=== PATIENT | female | born 2000 | race Caucasian/White ===

== ENCOUNTER 2022-09-15 01:30 | Inpatient (IN) ==
[2022-09-15] MEDS ORDERED: ONDANSETRON INJ 2 MG/ML 2 ML VIAL IV STA ×3 (01:44→04:59)
[2022-09-15] MEDS: SODIUM CHLORIDE 0.9% 1000ML 1,000 ML IV SCH ×2 (01:54→02:46)
[2022-09-15] MEDS ORDERED: FAMOTIDINE 20MG IV PUSH 20 MG/5 ML SYR IV STA (02:06)
[2022-09-15] MEDS ORDERED: DICYCLOMINE HCL 10 MG/ML 2 ML AMP/VIAL IM ONE (02:06)
[2022-09-15 02:24] LABS: Basophils # (auto) 0.05 K/uL (0-0.2); Basophils % (auto) 0.3 %; Eosinophils # (auto) 0.02 K/uL (0-0.50); Eosinophils % (auto) 0.1 %; Hematocrit (blood only) 44.7 % (37.0-47.0); Hemoglobin 15.4 g/dl (12.0-16.0); Immature Granulocytes # (auto) 0.08 K/uL (0.01-0.20); Immature Granulocytes % (auto) 0.4 %; Lymphocytes # (auto) 1.67 K/uL (1.2-3.4); Lymphocytes % (auto) 9.2 %; Mean Corpuscular Hemoglobin 28.8 pg (25.0-34.0); Mean Corpuscular Hgb Conc 34.5 g/dL (32.0-36.0); Mean Corpuscular Volume 83.7 fL (80.0-100.0); Mean Platelet Volume 10.1 fL (9.4-12.4); Monocytes # (auto) 0.73 K/uL (0.11-0.59); Neutrophils # (auto) 15.67 K/uL (1.40-6.50); Platelet Count 517 K/uL (130-400); RDW Coefficient of Variation 13.2 % (11.5-14.5); RDW Standard Deviation 40.7 fL (36.4-46.3); Red Blood Count 5.34 M/uL (4.20-5.40); White Blood Count 18.22 K/ul (4.8-10.8)
[2022-09-15 02:30] LABS: Albumin Level 4.8 gm/dl (3.4-5.0); BUN Creatinine Ratio 15.3 (10-20); Bilirubin Direct 0.2 mg/dl (0-0.2); Bilirubin,Total 0.7 mg/dl (0.2-1.0); C Reactive Protein 1.19 mg/dl (0-0.5); Calcium 10.2 mg/dl (8.5-10.1); Creatinine Clr Calc Pharmacy 76.1 ml/min; Est GFR (African American) 95.6 ml/min; Est GFR (Non-African American) 82.5 ml/min; Magnesium 1.7 mg/dl (1.7-2.4); Potassium 3.3 mmol/L (3.5-5.1); Total Protein 8.7 gm/dl (6.0-8.3)
[2022-09-15 02:37] LABS: Troponin I High Sensitivity 3.5 pg/ml (0-14)
--- NOTE | 2022-09-15 02:42 | Emergency Department Note ---
History of Present Illness General Chief complaint: Vomiting Stated complaint: VOMITING Time Seen by Provider: 09/15/22 01:56 History of Present Illness Maximum Pain Intensity: 7 This 22-year-old with Crohn's disease presents to the ER complaining of nausea, vomiting and abdominal pain today. No prior abdominal surgeries. No history of fistulous or abscesses. She states she has been doing well with her Crohn's since she has been on medication. Patient denies chest pain, dyspnea, fevers, flulike illness. Home Medications Medication Instructions Recorded Confirmed Type ascorbic acid (vitamin C) 500 mg 0 mg PO DAILY 09/15/22 09/15/22 History tablet (Vitamin C) cholecalciferol (vitamin D3) 25 0 mcg PO DAILY 09/15/22 09/15/22 History mcg (1,000 unit) capsule (Vitamin D3) cyanocobalamin (vitamin B-12) 0 mcg PO DAILY 09/15/22 09/15/22 History 1,000 mcg tablet (Vitamin B-12) dicyclomine 10 mg capsule 10 mg PO Q12H PRN ABD PAIN 09/15/22 09/15/22 History escitalopram oxalate 10 mg tablet 10 mg PO DAILY 09/15/22 09/15/22 History (Lexapro) multivitamin 1 tab PO DAILY 09/15/22 09/15/22 History norethindrone 1 mg-ethinyl 1 tab PO DAILY 09/15/22 09/15/22 History estradiol 10 mcg (24)-iron 10 mcg(2) tablet (Lo Loestrin Fe) Allergies Allergy/AdvReac Type Severity Reaction Status Date / Time ferrous sulfate Allergy Severe Anaphylaxis Verified 09/15/22 02:15 iron Allergy Severe Anaphylaxis Verified 09/15/22 02:15 Past Med/Surg History Social History Smoking Status: Never smoker Feels Safe at Home: Yes Review of Systems A total of 10 systems reviewed and were otherwise negative Physical Exam Vital Signs Vital Signs - 24 hr 09/15/22 01:33 09/15/22 01:45 09/15/22 01:45 Temperature 35.0 C L Temperature Source Temporal Artery Scan Pulse Rate 154 H Pulse Rate [Apical] 109 H Pulse Rhythm [Apical] Regular Pulse Strength [Apical] Normal Respiratory Rate 26 H 20 Respiratory Effort / Characteristics Non-Labored Spontaneous Non-Labored Respiratory Depth Normal Normal Respiratory Pattern Regular Blood Pressure 101/70 Blood Pressure [Right Arm] 99/72 L Blood Pressure Mean 80 Blood Pressure Mean [Right Arm] 81 Blood Pressure Position Sitting Blood Pressure Position [Right Arm] Lying Pulse Oximetry 99 98 98 Oxygen Delivery Method Room Air Room Air Room Air Sepsis Recent Fever Within 48 Hours No Sepsis New/Unexplained Change in Mental Status N/A Sepsis Action Taken by Nursing No Action Required 09/15/22 02:00 09/15/22 03:43 09/15/22 04:28 Temperature 37.2 C Temperature Source Axillary Oral Pulse Rate Pulse Rate [Apical] 99 H 107 H 112 H Pulse Rhythm [Apical] Regular Regular Pulse Strength [Apical] Normal Normal Respiratory Rate 16 18 Respiratory Effort / Characteristics Non-Labored Spontaneous Non-Labored Spontaneous Non-Labored Spontaneous Respiratory Depth Normal Normal Normal Respiratory Pattern Regular Blood Pressure Blood Pressure [Right Arm] 99/69 L 125/76 121/88 Blood Pressure Mean Blood Pressure Mean [Right Arm] 79 92 99 Blood Pressure Position Blood Pressure Position [Right Arm] Lying Lying Pulse Oximetry 97 100 99 Oxygen Delivery Method Room Air Room Air Room Air Sepsis Recent Fever Within 48 Hours Sepsis New/Unexplained Change in Mental Status Sepsis Action Taken by Nursing 09/15/22 05:11 Temperature Temperature Source Pulse Rate Pulse Rate [Apical] 96 H Pulse Rhythm [Apical] Pulse Strength [Apical] Respiratory Rate 18 Respiratory Effort / Characteristics Non-Labored Spontaneous Respiratory Depth Normal Respiratory Pattern Blood Pressure Blood Pressure [Right Arm] 137/64 Blood Pressure Mean Blood Pressure Mean [Right Arm] 88 Blood Pressure Position Blood Pressure Position [Right Arm] Pulse Oximetry 100 Oxygen Delivery Method Room Air Sepsis Recent Fever Within 48 Hours Sepsis New/Unexplained Change in Mental Status Sepsis Action Taken by Nursing VITALS: Vitals are noted on the nurse's note and reviewed by myself. Vital signs reviewed. GENERAL: Pleasant female with vomiting holding her vomit trash can, in no acute distress, nondiaphoretic, well-developed well-nourished. SKIN: The skin was without rashes, erythema, edema, or bruising. There is no tenting of the skin. Capillary reflex less than 2 seconds. HEAD: Normocephalic atraumatic. EARS: External auditory canals clear, EYES: Pupils equal round and reactive to light and accommodation. Conjunctivae without injection, sclerae without icterus. Extraocular movements intact. NOSE: Patent, turbinates without inflammation or discharge. MOUTH: Mucous membranes dry pharynx without erythema or exudate. Uvula midline. Airway patent. Tongue does not deviate. NECK: Supple without nuchal rigidity. No lymphadenopathy. No thyromegaly. Cervical spine is nontender. No JVD. HEART: Regular rate and rhythm LUNGS: Clear to auscultation bilaterally without wheezes, rales or rhonchi. No retractions or accessory muscle use. ABDOMEN: Positive bowel sounds x 4. Normal tympanic percussion. Soft, diffusely tender, without masses or organomegaly. Ybarra sign negative. No guarding or rebound tenderness. No CVA tenderness MUSCULOSKELETAL: No muscle atrophy, erythema, or edema noted. NEURO: Patient was alert and oriented to person place and time. Normal sensation to light and sharp touch. No focal neurological deficits. Course Administered Medications Discontinued Medications Dicyclomine HCl (Dicyclomine Hcl 10 Mg/Ml 2 Ml Amp/Vial) 20 mg IM NOW ONE Stop: 09/15/22 02:07 Last Admin: 09/15/22 02:46 Dose: 20 mg Documented By: SINDY Sodium Chloride (Nss 1000ml) 1,000 mls @ 999 mls/hr IV .Q1H1M MARCELINO Stop: 09/15/22 03:45 Last Infusion: 09/15/22 03:49 Dose: 0 mls/hr Documented By: Admin: 09/15/22 02:46 Dose: 999 mls/hr Documented By: Infusion: 09/15/22 02:46 Dose: 999 mls/hr Documented By: Admin: 09/15/22 01:54 Dose: 999 mls/hr Documented By: SINDY Famotidine (Pepcid 20mg Iv Push) 20 mg in 5 mls @ 2.5 mls/min IV NOW STA Stop: 09/15/22 02:07 Last Admin: 09/15/22 02:24 Dose: 2.5 mls/min Documented By: SINDY Sodium Chloride (Nss 1000ml) 1,000 mls @ 999 mls/hr IV .Q1H1M ONE Stop: 09/15/22 04:21 Last Infusion: 09/15/22 04:56 Dose: 0 mls/hr Documented By: Admin: 09/15/22 03:43 Dose: 999 mls/hr Documented By: DEVIN Acetaminophen (Ofirmev) 1,000 mg in 100 mls @ 400 mls/hr IV NOW STA Stop: 09/15/22 05:13 Last Infusion: 09/15/22 05:50 Dose: 0 mls/hr Documented By: Admin: 09/15/22 05:08 Dose: 400 mls/hr Documented By: DEVIN Ioversol (Optiray 350 100ml) 100 ml IV ONCE ONE Stop: 09/15/22 03:40 Last Admin: 09/15/22 03:39 Dose: 86 ml Documented By: ABIDA Ondansetron HCl (Ondansetron Inj 2 Mg/Ml 2 Ml Vial) 4 mg IV NOW STA Stop: 09/15/22 01:45 Last Admin: 09/15/22 01:54 Dose: 4 mg Documented By: SINDY Ondansetron HCl (Ondansetron Inj 2 Mg/Ml 2 Ml Vial) 4 mg IV NOW STA Stop: 09/15/22 02:07 Last Admin: 09/15/22 02:25 Dose: 4 mg Documented By: SINDY Ondansetron HCl (Ondansetron Inj 2 Mg/Ml 2 Ml Vial) 4 mg IV NOW STA Stop: 09/15/22 05:00 Last Admin: 09/15/22 05:08 Dose: 4 mg Documented By: DEVIN Medical Decision Making Medical Records Attestation: I reviewed the patient's medical records. Home Medications Current Medication List: was personally reviewed by al Laboratory Data Attestation: I reviewed the patient's lab results. 09/15/22 01:47 09/15/22 01:47 Lab Results 09/15/22 09/15/22 09/15/22 Range/Units 01:47 01:47 01:47 WBC 18.22 H (4.8-10.8) K/ul RBC 5.34 (4.20-5.40) M/uL Hgb 15.4 (12.0-16.0) g/dl Hct 44.7 (37.0-47.0) % MCV 83.7 (80.0-100.0) fL MCH 28.8 (25.0-34.0) pg MCHC 34.5 (32.0-36.0) g/dL RDW Std Deviation 40.7 (36.4-46.3) fL RDW Coeff of Lan 13.2 (11.5-14.5) % Plt Count 517 H (130-400) K/uL MPV 10.1 (9.4-12.4) fL Immature Gran % (Auto) 0.4 % Neut % (Auto) 86.0 % Lymph % (Auto) 9.2 % Karnes % (Auto) 4.0 % Eos % (Auto) 0.1 % Baso % (Auto) 0.3 % Neut # (Auto) 15.67 H (1.40-6.50) K/uL Lymph # (Auto) 1.67 (1.2-3.4) K/uL Karnes # (Auto) 0.73 H (0.11-0.59) K/uL Eos # (Auto) 0.02 (0-0.50) K/uL Baso # (Auto) 0.05 (0-0.2) K/uL Immature Gran # (Auto) 0.08 (0.01-0.20) K/uL ESR (0-20) mm/hr Sodium 140 (136-145) mmol/L Potassium 3.3 L (3.5-5.1) mmol/L Chloride 104 (98-107) mmol/L Carbon Dioxide 18 L (21-32) mmol/L Anion Gap 18 H (3-11) BUN 15 (6-23) mg/dl Creatinine 0.98 (0.6-1.2) mg/dl Est Cr Clr Drug Dosing 76.1 ml/min Est GFR ( Amer) 95.6 ml/min Est GFR (Non-Af Amer) 82.5 ml/min BUN/Creatinine Ratio 15.3 (10-20) Glucose 191 H (70-99(Fasting)) mg/dl Lactate 3.9 H* (0.4-2.0) mmol/L Calcium 10.2 H (8.5-10.1) mg/dl Magnesium 1.7 (1.7-2.4) mg/dl Total Bilirubin 0.7 (0.2-1.0) mg/dl Direct Bilirubin 0.2 (0-0.2) mg/dl AST 34 (13-39) U/L ALT 68 H (7-52) U/L Alkaline Phosphatase 83 (34-104) U/L Troponin I High Sens 3.5 (0-14) pg/ml C-Reactive Protein 1.19 H (0-0.5) mg/dl Total Protein 8.7 H (6.0-8.3) gm/dl Albumin 4.8 (3.4-5.0) gm/dl Procalcitonin (0-0.5) ng/ml HCG, Qual (Negative) 09/15/22 09/15/22 09/15/22 Range/Units 01:47 01:47 01:47 WBC (4.8-10.8) K/ul RBC (4.20-5.40) M/uL Hgb (12.0-16.0) g/dl Hct (37.0-47.0) % MCV (80.0-100.0) fL MCH (25.0-34.0) pg MCHC (32.0-36.0) g/dL RDW Std Deviation (36.4-46.3) fL RDW Coeff of Lan (11.5-14.5) % Plt Count (130-400) K/uL MPV (9.4-12.4) fL Immature Gran % (Auto) % Neut % (Auto) % Lymph % (Auto) % Karnes % (Auto) % Eos % (Auto) % Baso % (Auto) % Neut # (Auto) (1.40-6.50) K/uL Lymph # (Auto) (1.2-3.4) K/uL Karnes # (Auto) (0.11-0.59) K/uL Eos # (Auto) (0-0.50) K/uL Baso # (Auto) (0-0.2) K/uL Immature Gran # (Auto) (0.01-0.20) K/uL ESR 27 H (0-20) mm/hr Sodium (136-145) mmol/L Potassium (3.5-5.1) mmol/L Chloride (98-107) mmol/L Carbon Dioxide (21-32) mmol/L Anion Gap (3-11) BUN (6-23) mg/dl Creatinine (0.6-1.2) mg/dl Est Cr Clr Drug Dosing ml/min Est GFR ( Amer) ml/min Est GFR (Non-Af Amer) ml/min BUN/Creatinine Ratio (10-20) Glucose (70-99(Fasting)) mg/dl Lactate (0.4-2.0) mmol/L Calcium (8.5-10.1) mg/dl Magnesium (1.7-2.4) mg/dl Total Bilirubin (0.2-1.0) mg/dl Direct Bilirubin (0-0.2) mg/dl AST (13-39) U/L ALT (7-52) U/L Alkaline Phosphatase (34-104) U/L Troponin I High Sens (0-14) pg/ml C-Reactive Protein (0-0.5) mg/dl Total Protein (6.0-8.3) gm/dl Albumin (3.4-5.0) gm/dl Procalcitonin < 0.05 (0-0.5) ng/ml HCG, Qual Negative (Negative) 09/15/22 Range/Units 04:52 WBC (4.8-10.8) K/ul RBC (4.20-5.40) M/uL Hgb (12.0-16.0) g/dl Hct (37.0-47.0) % MCV (80.0-100.0) fL MCH (25.0-34.0) pg MCHC (32.0-36.0) g/dL RDW Std Deviation (36.4-46.3) fL RDW Coeff of Lan (11.5-14.5) % Plt Count (130-400) K/uL MPV (9.4-12.4) fL Immature Gran % (Auto) % Neut % (Auto) % Lymph % (Auto) % Karnes % (Auto) % Eos % (Auto) % Baso % (Auto) % Neut # (Auto) (1.40-6.50) K/uL Lymph # (Auto) (1.2-3.4) K/uL Karnes # (Auto) (0.11-0.59) K/uL Eos # (Auto) (0-0.50) K/uL Baso # (Auto) (0-0.2) K/uL Immature Gran # (Auto) (0.01-0.20) K/uL ESR (0-20) mm/hr Sodium (136-145) mmol/L Potassium (3.5-5.1) mmol/L Chloride (98-107) mmol/L Carbon Dioxide (21-32) mmol/L Anion Gap (3-11) BUN (6-23) mg/dl Creatinine (0.6-1.2) mg/dl Est Cr Clr Drug Dosing ml/min Est GFR ( Amer) ml/min Est GFR (Non-Af Amer) ml/min BUN/Creatinine Ratio (10-20) Glucose (70-99(Fasting)) mg/dl Lactate 2.5 H* (0.4-2.0) mmol/L Calcium (8.5-10.1) mg/dl Magnesium (1.7-2.4) mg/dl Total Bilirubin (0.2-1.0) mg/dl Direct Bilirubin (0-0.2) mg/dl AST (13-39) U/L ALT (7-52) U/L Alkaline Phosphatase (34-104) U/L Troponin I High Sens (0-14) pg/ml C-Reactive Protein (0-0.5) mg/dl Total Protein (6.0-8.3) gm/dl Albumin (3.4-5.0) gm/dl Procalcitonin (0-0.5) ng/ml HCG, Qual (Negative) Imaging Data Attestation: I personally reviewed and interpreted this imaging study as follows: MDM Narrative Prior records/ancillary studies reviewed. Triage Nursing notes reviewed. Additional history obtained from friend The patient's history was concerning for nausea, vomiting, and abdominal pain. Differential diagnosis: Etiologies such as Crohn's exacerbation, gastroenteritis, food borne illness, infections, appendicitis, diverticulitis, inflammatory bowel disease, o bstruction, GI bleed, biliary pathology, as well as others were entertained. Physical examination findings: As above. Abdominal examination revealed diffuse tenderness. Vital signs reviewed and revealed mildly tachycardic. ER treatment provided: IV hydration 1 L NSS. Zofran Pepcid Bentyl were ordered, APAP was ordered On reassessment the patient felt better. Patient was tolerating p.o. intake. Diagnostics interpretation by me: The labs Independently Interpreted by myself revealed leukocytosis, elevated inflammatory markers Imaging studies: Chest x-ray with no acute consolidation, pneumothorax or free air per my interpretation CT ABDOMEN & PELVIS With Contrast: High-grade small bowel obstruction extending to the level of an abrupt transition at the terminal ileum compatible with probable inflammatory stricture. The terminal ileum demonstrates enhancement and irregular wall thickening and the dilated distal loops of small bowel demonstrate mild wall thickening suggestive of active inflammation in a patient with a history of Crohn's disease No evidence for fistulization Solid organs normal The colon is predominantly collapsed Radiologist: David Marroquin MD Consultation: A consultation was placed with the hospitalist. The case was discussed and diagnostics were reviewed. The patient was evaluated in the ER for further treatment. The patient's mother called and the patient gave permission to speak to her mother. Mother asked about her test results. Labs and diagnostics were reviewed with the mother. All questions were answered. This appears to be consistent with Crohn's disease with a bowel obstruction. Labs and diagnostics were independently kept by myself. Radiology read the CAT scan. Case is discussed with the hospitalist and they will evaluate the patient for admission. Patient is agreeable. Mother is agreeable treatment plan. Patient will be admitted to the hospital service. By the evaluation outlined above emergent etiologies such as appendicitis, diverticulitis, cardiac sources, mesenteric ischemia, aortic pathology, renal colic, PUD, biliary pathology, UTI, as well as others were deemed relatively unlikely. The pt informed about the findings as listed above. All questions were answered and pleased with the treatment. The chart was completed utilizing [employer] Speech voice recognition software. Grammatical errors, random word insertions, pronoun errors, and incomplete sentences are an occassional consequence of this system due to software limitations, ambient noise, and hardware issues. Any formal questions or concerns about the content, text, or information contained within the body of this dictation should be directly addressed to the physician casino assistant manager for clarification. Impression & Plan SBO (small bowel obstruction), Crohn disease Discharge Plan Visit Data Chief Complaint: Vomiting Stated Complaint: VOMITING ED Provider: Mariah Campbell ED Midlevel Provider: Myesha Shay Discharge Problem: SBO (small bowel obstruction), Crohn disease Patient Disposition: Admitted As Inpatient Condition: Good Forms Stand Alone Forms: My [facility] Prescriptions Prescriptions: No Action multivitamin Tablet 1 tab PO DAILY cyanocobalamin (vitamin B-12) [Vitamin B-12] 1,000 mcg Tablet 0 mcg PO DAILY Rx Instructions: PT UNSURE OF STRENGTH ascorbic acid (vitamin C) [Vitamin C] 500 mg Tablet 0 mg PO DAILY Rx Instructions: PT UNSURE OF STRENGTH dicyclomine 10 mg Capsule 10 mg PO Q12H PRN (Reason: ABD PAIN) cholecalciferol (vitamin D3) [Vitamin D3] 25 mcg (1,000 unit) Capsule 0 mcg PO DAILY Rx Instructions: PT UNSURE OF STRENGTH escitalopram oxalate [Lexapro] 10 mg Tablet 10 mg PO DAILY Lo Loestrin Fe 1 mg-10 mcg (24)/10 mcg (2) Tablet 1 tab PO DAILY Referrals Referrals: PCP,NO [Physician] -
[2022-09-15 02:45] LABS: Pregnancy Test, Serum Negative (Negative)
[2022-09-15] MEDS ORDERED: SODIUM CHLORIDE 0.9% 1000ML 1,000 ML IV ONE (03:21)
[2022-09-15] MEDS ORDERED: OPTIRAY 350 100ml IV ONE (03:39)
[2022-09-15] MEDS ORDERED: ACETAMINOPHEN 1,000 MG/100 ML VIAL IV STA (04:59)
--- NOTE | 2022-09-15 06:21 | History & Physical Report ---
Date of Service September 15, 2022 Assessment & Plan (1) SBO (small bowel obstruction): Plan: 22yo female with history of Crohns disease - overall well managed on Stelara - presenting with high grade SBO secondary to Crohs - possible stricture as noted on imaging -Admit to medical -Keep NPO -NGT to LIWS -Zofran PRN -Morphine PRN -Solumedrol 40mg IV daily -GI consultation appreciated -General surgery consultation appreciated (2) Crohn disease: Plan: With SBO as above -Solumedrol -GI consultation (3) Anxiety: Plan: Chronic -Continue Lexapro History of Present Illness Chief Complaint: SBO Primary Care Provider: YOGI E GOTBessy Tadeo is a 22yo female with history of Crohns disease presenting with SBO. She is complaining of one day of severe abdominal pain - diffuse cramping as well as nausea and multiple episodes of bilious vomiting. She is passing some flatus - last this am. Had a small BM this AM as well. Patient was diagnosed with Crohns disease appx 1 year ago. She follows with [facility]. She was previously on Budesonide and now is on Stelara injections. She is to get the injections q 8 weeks - sometimes will get it at 7 weeks due to recurrence of symptoms. Her disease is overall well controlled. She has not had a flare since her diagnosis. Last Stelara injection was 5 days ago. In the ER she is afebrile, HD stable. Nausea and pain is improved ER Course: Tylenol, Dicyclomine Allergies Allergy/AdvReac Type Severity Reaction Status Date / Time ferrous sulfate Allergy Severe Anaphylaxis Verified 09/15/22 02:15 iron Allergy Severe Anaphylaxis Verified 09/15/22 02:15 Home Medications Medication Instructions Recorded Confirmed Type ascorbic acid (vitamin C) 500 mg 0 mg PO DAILY 09/15/22 09/15/22 History tablet (Vitamin C) cholecalciferol (vitamin D3) 25 0 mcg PO DAILY 09/15/22 09/15/22 History mcg (1,000 unit) capsule (Vitamin D3) cyanocobalamin (vitamin B-12) 0 mcg PO DAILY 09/15/22 09/15/22 History 1,000 mcg tablet (Vitamin B-12) dicyclomine 10 mg capsule 10 mg PO Q12H PRN ABD PAIN 09/15/22 09/15/22 History escitalopram oxalate 10 mg tablet 10 mg PO DAILY 09/15/22 09/15/22 History (Lexapro) multivitamin 1 tab PO DAILY 09/15/22 09/15/22 History norethindrone 1 mg-ethinyl 1 tab PO DAILY 09/15/22 09/15/22 History estradiol 10 mcg (24)-iron 10 mcg(2) tablet (Lo Loestrin Fe) Past Med/Surg History Medical History Crohn disease Surgical History History of wisdom tooth extraction Family History Other IBS (irritable bowel syndrome) Social History (Updated 09/15/22 @ 07:12 by Jeri Arevalo DO) Smoking Status: Never smoker Hx Alcohol Use: Yes (social) Hx Substance Use: No Feels Safe at Home: Yes Review of Systems Review of Systems: All systems reviewed & are unremarkable except as noted in HPI & below Physical Exam Physical Exam: General: patient resting comfortably, NAD, non-toxic in appearance, AA&O x 4 Skin: warm, dry, intact, no rashes or lesions HEENT: NC/AT, PERRL, EOMI, anicteric sclera, conjunctiva without injection, external ear normal to inspection and nontender, nares patent, moist mucus membranes, dentition intact, no oropharyngeal lesions, neck supple, trachea midline, no LAD, no thyromegaly, no JVD Heart: +S1/S2, regular, no m/r/g Lungs: equal air entry bilaterally, no rales/rhonchi/wheezes Abd: diminished bowel sounds, soft, ND, diffusely tender, no masses/organomegaly/ascites Ext: warm, 2+ pulses in UE/LE bilaterally, no clubbing/cyanosis or edema Neuro: nonfocal, patient AA&O x 4, speech intact, no facial droop, moving all extremities on command with equal strength 5/5 Results & Data Results & Data ([facility]) Vital Signs (Past 12 Hours) Vital Signs Temp Pulse Pulse Resp BP BP Pulse Ox 09/15/22 05:11 96 H 18 137/64 100 09/15/22 04:28 37.2 C 112 H 18 121/88 99 09/15/22 03:43 107 H 16 125/76 100 09/15/22 02:00 99 H 99/69 L 97 09/15/22 01:45 109 H 20 99/72 L 98 09/15/22 01:45 98 09/15/22 01:33 35.0 C L 154 H 26 H 101/70 99 O2 Del Method 09/15/22 05:11 Room Air 09/15/22 04:28 Room Air 09/15/22 03:43 Room Air 09/15/22 02:00 Room Air 09/15/22 01:45 Room Air 09/15/22 01:45 Room Air 09/15/22 01:33 Room Air Laboratory Results Laboratory Results WBC 18.22 K/ul (4.8-10.8) H 09/15/22 01:47 RBC 5.34 M/uL (4.20-5.40) 09/15/22 01:47 Hgb 15.4 g/dl (12.0-16.0) 09/15/22 01:47 Hct 44.7 % (37.0-47.0) 09/15/22 01:47 MCV 83.7 fL (80.0-100.0) 09/15/22 01:47 MCH 28.8 pg (25.0-34.0) 09/15/22 01:47 MCHC 34.5 g/dL (32.0-36.0) 09/15/22 01:47 RDW Std Deviation 40.7 fL (36.4-46.3) 09/15/22 01:47 RDW Coeff of Lan 13.2 % (11.5-14.5) 09/15/22 01:47 Plt Count 517 K/uL (130-400) H 09/15/22 01:47 MPV 10.1 fL (9.4-12.4) 09/15/22 01:47 Immature Gran % (Auto) 0.4 % 09/15/22 01:47 Neut % (Auto) 86.0 % 09/15/22 01:47 Lymph % (Auto) 9.2 % 09/15/22 01:47 Clay % (Auto) 4.0 % 09/15/22 01:47 Eos % (Auto) 0.1 % 09/15/22 01:47 Baso % (Auto) 0.3 % 09/15/22 01:47 Neut # (Auto) 15.67 K/uL (1.40-6.50) H 09/15/22 01:47 Lymph # (Auto) 1.67 K/uL (1.2-3.4) 09/15/22 01:47 Clay # (Auto) 0.73 K/uL (0.11-0.59) H 09/15/22 01:47 Eos # (Auto) 0.02 K/uL (0-0.50) 09/15/22 01:47 Baso # (Auto) 0.05 K/uL (0-0.2) 09/15/22 01:47 Immature Gran # (Auto) 0.08 K/uL (0.01-0.20) 09/15/22 01:47 ESR 27 mm/hr (0-20) H 09/15/22 01:47 Sodium 140 mmol/L (136-145) 09/15/22 01:47 Potassium 3.3 mmol/L (3.5-5.1) L 09/15/22 01:47 Chloride 104 mmol/L (98-107) 09/15/22 01:47 Carbon Dioxide 18 mmol/L (21-32) L 09/15/22 01:47 Anion Gap 18 (3-11) H 09/15/22 01:47 BUN 15 mg/dl (6-23) 09/15/22 01:47 Creatinine 0.98 mg/dl (0.6-1.2) 09/15/22 01:47 Est Cr Clr Drug Dosing 76.1 ml/min 09/15/22 01:47 Est GFR ( Amer) 95.6 ml/min 09/15/22 01:47 Est GFR (Non-Af Amer) 82.5 ml/min 09/15/22 01:47 BUN/Creatinine Ratio 15.3 (10-20) 09/15/22 01:47 Glucose 191 mg/dl (70-99(Fasting)) H 09/15/22 01:47 Lactate 2.5 mmol/L (0.4-2.0) H* 09/15/22 04:52 Calcium 10.2 mg/dl (8.5-10.1) H 09/15/22 01:47 Magnesium 1.7 mg/dl (1.7-2.4) 09/15/22 01:47 Total Bilirubin 0.7 mg/dl (0.2-1.0) 09/15/22 01:47 Direct Bilirubin 0.2 mg/dl (0-0.2) 09/15/22 01:47 AST 34 U/L (13-39) 09/15/22 01:47 ALT 68 U/L (7-52) H 09/15/22 01:47 Alkaline Phosphatase 83 U/L (34-104) 09/15/22 01:47 Troponin I High Sens 3.5 pg/ml (0-14) 09/15/22 01:47 C-Reactive Protein 1.19 mg/dl (0-0.5) H 09/15/22 01:47 Total Protein 8.7 gm/dl (6.0-8.3) H 09/15/22 01:47 Albumin 4.8 gm/dl (3.4-5.0) 09/15/22 01:47 Procalcitonin < 0.05 ng/ml (0-0.5) 09/15/22 01:47 HCG, Qual Negative (Negative) 09/15/22 01:47 SARS-CoV-2, RNA, NAAT NEGATIVE (NEGATIVE) 09/15/22 06:[address] Abdomen and Pelvis High grade SBO extending to the level of an abrupt transition at the terminal ileum compatible with probable inflammatory stricture. The terminal ileum demonstrates enhancement and irregular wall thickening and the dilated distal loops of small bowel demonstrate mild wall thickening suggestive of active inflammation in a patient with a history of Crohn's disease. No evidence for fistulization Solid organs normal PG Care Time/CCT Total # of Minutes Spent Total Time Spent with Patient: Total time spent is greater than 50% in coordination of care (as documented) at patient's floor/unit and/or counseling patient: Coding Level of Care Code 39514 INT INP/OBS CARE 2/55MIN Diagnoses SBO (small bowel obstruction) K56.609 Crohn disease K50.90 Anxiety F41.9
--- NOTE | 2022-09-15 06:36 | Surgery Consultation ---
Date of Consultation September 15, 2022 Assessment & Plan (1) SBO (small bowel obstruction): I discussed with the treating clinician in the emergency department the patient is being admitted on the hospitalist service. We recommend proceeding as follows: Implement n.p.o. status Provide IV fluid for hydration Follow serial labs Provide analgesics Provide antiemetics At the present time the patient's abdominal symptoms have improved and she has not had emesis in approximately 2 hours. I did discuss with the patient that if she has further emesis or worsening of her abdominal exam and NG tube may be required and she expressed her understanding. It appears on CT scan the patient may have an active exacerbation of her Crohn's disease resulting in the small bowel obstruction present on CT scan. Would recommend obtaining a GI consultation to determine if patient should be placed on steroids and this will be deferred to the primary service as well as the GI services. I discussed with the patient that it would be preferable to avoid any surgical intervention due to her Crohn's disease. Additional recommendations be forthcoming based on her clinical course as it unfolds Supervising Physician Co-Signing Physician Notes Patient seen and examined, labs and imaging reviewed, agree with above. 22-year-old female with 1 year history of Crohn's disease on Stelara presents with abdominal pain. CT revealed inflammation at the TI with proximal small bowel obstruction. She is feeling better than on admission, still slightly bloated and with some abdominal discomfort. She has had multiple loose bowel movements. On exam she is afebrile with stable vitals. Her abdomen is soft, nontender, nondistended. GI has seen the patient starting her on Solu-Medrol. No surgical intervention indicated at this time. If patient continues to do well may start on clear liquids. Surgery will follow. History of Present Illness Reason for Consultation: Small bowel obstruction History of Present Illness This is a 22-year-old female who was diagnosed with Crohn's disease in December 2021. Patient notes she was diagnosed because she had symptoms similar to what she presented with today which include abdominal pain. The patient says that she underwent upper and lower endoscopies as well as abdominal MRI and was diagnosed with Crohn's. She said at time of her initial diagnosis she was on steroids and has subsequently been taking Stelara every 8 weeks which she received approximately 1 week ago. She presented the emergency department today because she began to have some nausea and vomiting along with abdominal pain earlier today. She does not note any palliative or provocative factors notes the pain does not radiate. She denies any fevers, shakes, or chills. She notes that she has never had abdominal surgeries. She notes her most recent emesis was approximately 2 hours ago and since arrival to the emergency department she has felt somewhat better. Since arrival to the emergency department the patient has had imaging which included a CT scan abdomen pelvis that showed concern for high-grade small bowel obstruction with an abrupt transition point at the level of the terminal ileum which was felt to be compatible with inflammatory stricture. This was also noted to have irregular wall thickening concerning for active inflammation. There is no evidence of fistula. Chest x-ray did not show any evidence of pneumonia or free subdiaphragmatic air. Labs include a CBC her white blood cell count was 18.2. Hemoglobin and hematocrit were noted to be normal. Platelet count was 517,000. Chemistry profile showed sodium was 140 with a potassium of 3.3. BUN and creatinine were both normal. Her erythrocyte sedimentation rate had a slight elevation at 27. Lactic acid was slightly elevated at 2.5. There is no significant elevation of LFTs other than a small elevation of the ALT at 68. C-reactive protein was elevated at 1.19. A test was negative. Procalcitonin was negative. A COVID test was pending. Since arrival to the emergency department patient has received intravenous fluids, approximately 2 L. She has received Zofran and Bentyl along with Pepcid and analgesics in the form of Tylenol. With these modalities the patient noted that she did feel somewhat better. At the time of my interview she was in no distress Allergies Allergy/AdvReac Type Severity Reaction Status Date / Time ferrous sulfate Allergy Severe Anaphylaxis Verified 09/15/22 02:15 iron Allergy Severe Anaphylaxis Verified 09/15/22 02:15 Home Medications Medication Instructions Recorded Confirmed Type ascorbic acid (vitamin C) 500 mg 0 mg PO DAILY 09/15/22 09/15/22 History tablet (Vitamin C) cholecalciferol (vitamin D3) 25 0 mcg PO DAILY 09/15/22 09/15/22 History mcg (1,000 unit) capsule (Vitamin D3) cyanocobalamin (vitamin B-12) 0 mcg PO DAILY 09/15/22 09/15/22 History 1,000 mcg tablet (Vitamin B-12) dicyclomine 10 mg capsule 10 mg PO Q12H PRN ABD PAIN 09/15/22 09/15/22 History escitalopram oxalate 10 mg tablet 10 mg PO DAILY 09/15/22 09/15/22 History (Lexapro) multivitamin 1 tab PO DAILY 09/15/22 09/15/22 History norethindrone 1 mg-ethinyl 1 tab PO DAILY 09/15/22 09/15/22 History estradiol 10 mcg (24)-iron 10 mcg(2) tablet (Lo Loestrin Fe) Patient History Medical History Crohn disease Surgical History History of wisdom tooth extraction Family History Other IBS (irritable bowel syndrome) Social History Smoking Status: Never smoker Hx Alcohol Use: Yes (social) Hx Substance Use: No Feels Safe at Home: Yes Assistive Devices: None Review of Systems Constitutional: no fever and no chills Eyes: no eye pain Ear, Nose, Mouth, Throat: no ear pain Respiratory: no cough and no dyspnea Cardiovascular: no chest pain Gastrointestinal: as per Subjective / HPI, + abdominal pain, + nausea and + vomiting Genitourinary: no dysuria Musculoskeletal: no back pain Integumentary: no rash Neurologic: no localized weakness Physical Exam Constitutional: WD/WN, vitals as above Eyes: no conjunctival abnormality ENMT: Ears: no hearing impairment and no external ear abnormality Mouth: no oropharynx abnormality Neck: trachea midline Respiratory: normal respiratory effort; no respiratory distress and no labored breathing Cardiovascular: Rate/Rhythm: regular rate and regular rhythm Gastrointestinal (Abdomen): Abdomen is minimally distended but otherwise soft and nonrigid. There is minimal pain with palpation at the time of my exam and there is no rebound tenderness or guarding noted. Musculoskeletal: No calf tenderness Skin: no rashes Neurologic: moves all extremities Psychiatric: A+Ox3, euthymic affect Results & Data ([facility]) Vital Signs (Past 12 Hours) Vital Signs Temp Pulse Pulse Resp BP BP Pulse Ox 09/15/22 05:11 96 H 18 137/64 100 09/15/22 04:28 37.2 C 112 H 18 121/88 99 09/15/22 03:43 107 H 16 125/76 100 09/15/22 02:00 99 H 99/69 L 97 09/15/22 01:45 109 H 20 99/72 L 98 09/15/22 01:45 98 09/15/22 01:33 35.0 C L 154 H 26 H 101/70 99 O2 Del Method 09/15/22 05:11 Room Air 09/15/22 04:28 Room Air 09/15/22 03:43 Room Air 09/15/22 02:00 Room Air 09/15/22 01:45 Room Air 09/15/22 01:45 Room Air 09/15/22 01:33 Room Air PG Care Time/CCT Total # of Minutes Spent Total Time Spent with Patient: Total time spent is greater than 50% in coordination of care (as documented) at patient's floor/unit and/or counseling patient: Coding Level of Care Code INP/OBS CONSULT LVL 5, 80 MIN Diagnoses SBO (small bowel obstruction) K56.609
--- NOTE | 2022-09-15 07:14 | CT Scan Report ---
CT OF THE ABDOMEN AND PELVIS WITH CONTRAST CLINICAL HISTORY: Mid abdominal pain. Crohn's disease. COMPARISON STUDY: None. TECHNIQUE: Following IV administration of 86 mL of Optiray, axial images of the abdomen and pelvis we re obtained from the lung bases to the proximal femurs. Images were reviewed in the axial, sagittal, and coronal planes. IV contrast was administered without complication. Automated exposure control wa s utilized for the study. A dose lowering technique was utilized adhering to the principles of ALARA . CT DOSE: 412.41 mGycm FINDINGS: Note is made of a small amount of pneumomediastinum within visualized portions of the lower chest. Gas extends along the fissures within the left lung base which could reflect a source for pne umomediastinum. There is mild distal esophageal wall thickening which could be due to underdistention . A small hiatal hernia is present. A few small low suspicion nodules within the lower lungs are pres ent. No pleural effusion. No pneumoperitoneum, portal venous gas or pneumatosis is present. Liver, spleen, adrenal glands, kidn eys and pancreas are unremarkable. There is no biliary or pancreatic ductal dilatation. No hydronephr osis. The appendix is normal. The small bowel is markedly distended and fluid-filled, particularly th e distal small bowel. Transition point is at the terminal ileum. The colon is decompressed. Note is m olivia of inflammation at the terminal ileum involving the ileocecal valve and possibly involving the ce cum. This extends for 2.5 cm in length and represents active inflammation with stricture resulting in the small bowel obstruction. No abscess is present. No fistulas are identified. Suspected wall thick ening of the distal there may also be wall thickening of the distal ileum which is difficult to asses s given the degree of dilatation. Small amount of associated interloop fluid is present. There is no well-defined fluid collection. Major vasculature is patent. Prominent ileocolic lymph nodes are likel y reactive. There are no acute fractures. No suspicious osseous lesions are present. IMPRESSION: 1. High-grade small bowel with transition point at the terminal ileum. This obstruction is likely due to a stricture related to active inflammation in the setting of Crohn's disease involving the termin al ileum and ileocecal valve. Small amount of associated ascites. No abscess. No fistulas. In additio n, longer segment suspected wall thickening of the distal ileum, difficult to assess given the degree of small bowel dilatation. 2. Small amount of pneumomediastinum within the lower chest. This is likely bronchoalveolar in etiolo gy. No pleural effusion or mediastinal fluid/inflammation. However given mild distal esophageal wall thickening, a chest CT with oral contrast is recommended to exclude the unlikely possibility of esoph ageal injury. This finding will be called/faxed to ordering provider at time of dictation. ACT 112: Negative or not required by law. Electronically signed by: Lukasz Mccoy M.D. 09/15/2022 7:13 AM
--- NOTE | 2022-09-15 07:23 | XRay Report ---
XR chest 1V portable CLINICAL HISTORY: Sepsis. COMPARISON STUDY: No previous studies for comparison. FINDINGS: Lung volumes are normal. Lungs are clear. There is no pneumothorax or pleural effusion. Car diac size is normal. Mediastinal contours are normal. There is no evidence for pulmonary edema. IMPRESSION: No acute cardiopulmonary findings. ACT 112: Negative or not required by law. Electronically signed by: Lukasz Mccoy M.D. 09/15/2022 7:21 AM
[2022-09-15] MEDS ORDERED: MoRPHine SULFATE 2 MG/ML CARP IV PRN (07:39)
[2022-09-15] MEDS ORDERED: MoRPHine SULFATE 4 MG/ML 1 ML CARP\\VIAL IV PRN (07:39)
[2022-09-15] MEDS ORDERED: ONDANSETRON INJ 2 MG/ML 2 ML VIAL IV PRN (07:39)
[2022-09-15] MEDS: methylPREDNISolone 40 MG in SYRINGE 0 ML IV SCH (08:20)
[2022-09-15] MEDS: LACTATED RINGER'S 1,000 ML IV SCH ×2 (08:23→17:28)
[2022-09-15] MEDS: POTASSIUM CHLORIDE / WTR 10 MEQ/100 ML PLCT IV SCH ×4 (08:31→11:40)
--- NOTE | 2022-09-15 08:52 | Hospitalist Progress Note ---
Date of Service September 15, 2022 Assessment & Plan (1) SBO (small bowel obstruction): Plan: 22yo female with history of Crohns disease - overall well managed on Stelara - presenting with high grade SBO secondary to Crohns - possible stricture as noted on imaging -Keep NPO -IVFs -Zofran PRN -Morphine PRN -Solumedrol 40mg IV daily -General surgery consultation appreciated Recommend NPO, IVFs, analgesics, antiemetics If has further nausea recommends NGT -GI consultation appreciated Recommend NPO, IVFs, analgesics, antiemetics If has further nausea recommends NGT Also recommend Solu-Medrol 40mg IV daily (2) Crohn disease: Plan: Crohns disease with SBO as above -Solumedrol 40mg IV daily -NPO -NGT if vomiting -GI consultation (3) Anxiety: Plan: Chronic -Continue Lexapro Admission and Anticipated Discharge Date Admission Date: September 15, 2022 Subjective Patient is awake in bed and states she feels about the same. She states she has had 4 loose bloody diarrheal episodes this AM. She was evaluated by GI and Surgery. Patient tells me that she was diagnosed with Crohns disease in October 2021 after having an incomplete colonoscopy in 09/2021 and then an MRI confirming Crohns disease in October. She has never had a full colonoscopy and is to have a repeat colonoscpy this summer when home on Summer break from college. She has been on Stelara 90mg SQ every 8 weeks since October 2021. Patient states she still has lower abdominal pain and cramping. Patient denies any further vomiting since last night. Review of Systems Constitutional: + fatigue; no fever and no chills Respiratory: no cough, no chest congestion and no dyspnea Cardiovascular: no chest pain, no dyspnea and no edema Gastrointestinal: + abdominal pain, + bloating, + nausea, + vomiting, + cramping, + diarrhea/loose stools and + blood in stools Genitourinary: no dysuria, no urinary frequency, no nocturia and no flank pain Integumentary: no rash, no lesions and no new lesions Psychiatric: no behavioral changes, no suicidal ideation, no panic attacks and no difficulty concentrating Endocrine: no polydipsia, no polyphagia and no polyuria Physical Exam Constitutional: WD/WN, vitals as above ENMT: external ear and nose normal, oropharynx normal Neck: trachea midline, no thyromegaly Respiratory: normal respiratory effort, lungs clear to auscultation Cardiovascular: RRR, no murmur, no edema Gastrointestinal (Abdomen): Inspection/Auscultation: abdomen normal to inspection and normal bowel sounds; abdomen not distended Percussion/Palpation: + abdomen tender and abdomen soft; no hepatosplenomegaly and no abdominal mass tender to palpation lower abdomen Skin: no rashes, warm and dry Psychiatric: A+Ox3, euthymic affect Results & Data Results & Data ([facility]) Vital Signs (Past 12 Hours) Vital Signs Temp Pulse Pulse Resp BP BP Pulse Ox 09/15/22 07:30 106 H 16 111/68 99 09/15/22 05:11 96 H 18 137/64 100 09/15/22 04:28 37.2 C 112 H 18 121/88 99 09/15/22 03:43 107 H 16 125/76 100 09/15/22 02:00 99 H 99/69 L 97 09/15/22 01:45 109 H 20 99/72 L 98 09/15/22 01:45 98 09/15/22 01:33 35.0 C L 154 H 26 H 101/70 99 O2 Del Method 09/15/22 07:30 Room Air 09/15/22 05:11 Room Air 09/15/22 04:28 Room Air 09/15/22 03:43 Room Air 09/15/22 02:00 Room Air 09/15/22 01:45 Room Air 09/15/22 01:45 Room Air 09/15/22 01:33 Room Air Laboratory Results Abnormal lab results 09/15/22 09/15/22 09/15/22 Range/Units 01:47 01:47 01:47 WBC 18.22 H (4.8-10.8) K/ul Plt Count 517 H (130-400) K/uL Neut # (Auto) 15.67 H (1.40-6.50) K/uL Park # (Auto) 0.73 H (0.11-0.59) K/uL ESR (0-20) mm/hr Potassium 3.3 L (3.5-5.1) mmol/L Carbon Dioxide 18 L (21-32) mmol/L Anion Gap 18 H (3-11) Glucose 191 H (70-99(Fasting)) mg/dl Lactate 3.9 H* (0.4-2.0) mmol/L Calcium 10.2 H (8.5-10.1) mg/dl ALT 68 H (7-52) U/L C-Reactive Protein 1.19 H (0-0.5) mg/dl Total Protein 8.7 H (6.0-8.3) gm/dl 09/15/22 09/15/22 Range/Units 01:47 04:52 WBC (4.8-10.8) K/ul Plt Count (130-400) K/uL Neut # (Auto) (1.40-6.50) K/uL Park # (Auto) (0.11-0.59) K/uL ESR 27 H (0-20) mm/hr Potassium (3.5-5.1) mmol/L Carbon Dioxide (21-32) mmol/L Anion Gap (3-11) Glucose (70-99(Fasting)) mg/dl Lactate 2.5 H* (0.4-2.0) mmol/L Calcium (8.5-10.1) mg/dl ALT (7-52) U/L C-Reactive Protein (0-0.5) mg/dl Total Protein (6.0-8.3) gm/dl Diagnostic Findings Chest X-Ray 09/15/22 01:45 XR chest 1V portable CLINICAL HISTORY: Sepsis. COMPARISON STUDY: No previous studies for comparison. FINDINGS: Lung volumes are normal. Lungs are clear. There is no pneumothorax or pleural effusion. Cardiac size is normal. Mediastinal contours are normal. There is no evidence for pulmonary edema. IMPRESSION: No acute cardiopulmonary findings. ACT 112: Negative or not required by law. Electronically signed by: Lukasz Mccoy M.D. 09/15/2022 7:21 AM Abdomen/Pelvis CT 09/15/22 02:29 CT OF THE ABDOMEN AND PELVIS WITH CONTRAST CLINICAL HISTORY: Mid abdominal pain. Crohn's disease. COMPARISON STUDY: None. TECHNIQUE: Following IV administration of 86 mL of Optiray, axial images of the abdomen and pelvis were obtained from the lung bases to the proximal femurs. Images were reviewed in the axial, sagittal, and coronal planes. IV contrast was administered without complication. Automated exposure control was utilized for the study. A dose lowering technique was utilized adhering to the principles of ALARA. CT DOSE: 412.41 mGycm FINDINGS: Note is made of a small amount of pneumomediastinum within visualized portions of the lower chest. Gas extends along the fissures within the left lung base which could reflect a source for pneumomediastinum. There is mild distal esophageal wall thickening which could be due to underdistention. A small hiatal hernia is present. A few small low suspicion nodules within the lower lungs are present. No pleural effusion. No pneumoperitoneum, portal venous gas or pneumatosis is present. Liver, spleen, adrenal glands, kidneys and pancreas are unremarkable. There is no biliary or pancreatic ductal dilatation. No hydronephrosis. The appendix is normal. The small bowel is markedly distended and fluid-filled, particularly the distal small bowel. Transition point is at the terminal ileum. The colon is decompressed. Note is made of inflammation at the terminal ileum involving the ileocecal valve and possibly involving the cecum. This extends for 2.5 cm in length and represents active inflammation with stricture resulting in the small bowel obstruction. No abscess is present. No fistulas are identified. Suspected wall thickening of the distal there may also be wall thickening of the distal ileum which is difficult to assess given the degree of dilatation. Small amount of associated interloop fluid is present. There is no well-defined fluid jessy ection. Major vasculature is patent. Prominent ileocolic lymph nodes are likely reactive. There are no acute fractures. No suspicious osseous lesions are present. IMPRESSION: 1. High-grade small bowel with transition point at the terminal ileum. This obstruction is likely due to a stricture related to active inflammation in the setting of Crohn's disease involving the terminal ileum and ileocecal valve. Small amount of associated ascites. No abscess. No fistulas. In addition, longer segment suspected wall thickening of the distal ileum, difficult to assess given the degree of small bowel dilatation. 2. Small amount of pneumomediastinum within the lower chest. This is likely bronchoalveolar in etiology. No pleural effusion or mediastinal fluid/inflammation. However given mild distal esophageal wall thickening, a chest CT with oral contrast is recommended to exclude the unlikely possibility of esophageal injury. This finding will be called/faxed to ordering provider at time of dictation. ACT 112: Negative or not required by law. Electronically signed by: Lukasz Mccoy M.D. 09/15/2022 7:13 AM PG Care Time/CCT Total # of Minutes Spent Total Time Spent with Patient: Total time spent is greater than 50% in coordination of care (as documented) at patient's floor/unit and/or counseling patient: Coding Level of Care Code 11439 SUB INP/OBS CARE 08/31MIN Diagnoses SBO (small bowel obstruction) K56.609 Crohn disease K50.90 Anxiety F41.9
[2022-09-15] MEDS: ESCITALOPRAM OXALATE 10 MG TAB PO SCH ×2 (09:16→22:04)
--- NOTE | 2022-09-15 10:40 | Gastrointestinal Consultation ---
Date of Consultation September 15, 2022 Assessment & Plan (1) Crohn disease: (2) SBO (small bowel obstruction): Plan Patient is a very pleasant 22 y.o. female with a history of Crohn's ileitis with probable stenosis admitted with abdominal pain, nausea with vomiting and abnormal labs/imaging consistent with SBO. 1. NPO for now. 2. Agree with NG to LIWS if persistent vomiting. 3. Agree with initiation of Solu-Medrol 40 mg IV daily. 4. Supportive measure per primary team. 5. Appreciate general surgery input. 6. Will follow and make recommendations as appropriate. Thank you for allowing us to participate in the care of this patient. If you have any questions or concerns, please do not hesitate to contact us. Total time for today's office visit includes reviewing records prior to patient arrival, face to face visit as well as record documentation after patient departure. Supervising Physician Co-Signing Physician Notes Agree with VLAD Mckeon as above Abd: Soft, tender, RLQ, ND, +BS Continue current therapy and supportive care Will consider decreasing interval of Stelara with next dose. Agree with Surgery, that there is no acute need for surgical intervention. History of Present Illness Reason for Consultation: Crohn's disease/SBO Requesting Physician: Dr. Arevalo Attending Physician: Giuseppe Tovar History of Present Illness Patient is a 22 y.o. female with a history of Crohn's ileitis diagnosed in October of 2021 at home in [facility]. She was previously treated with corticosteroids and remains on Stelara 90 mg SQ every 8 weeks. She states she was doing well until about 6 weeks ago. She has been having slightly increased symptoms of diarrhea and cramping. She states that she injected her Stelara on Monday09/09/22. She reportedly celebrated her 22st birthday on Monday and had 2 alcoholic beverages as well as a single liquor shot. She has not felt well since that time but yesterday developed progressively worsened abdominal pain into the late evening with associated n/v. Last emesis was at approximately 4:00 am this morning. No f/c. Abdominal pain has resolved. Severe bloating. +passing flatus and several liquid stools this morning. No rectal bleeding. Labs and imaging reviewed. Findings of leukocytosis and thrombophilia as well as elevated ESR of 27. Serum lactate of 2.5. CT evidence of high grade distal small bowel obstruction at the TI. Was evaluated by general surgery. No emergent surgical intervention has been recommended. Possible NG if needed. Remains NPO. Allergies Allergy/AdvReac Type Severity Reaction Status Date / Time ferrous sulfate Allergy Severe Anaphylaxis Verified 09/15/22 02:15 iron Allergy Severe Anaphylaxis Verified 09/15/22 02:15 Home Medications Medication Instructions Recorded Confirmed Type ascorbic acid (vitamin C) 500 mg 0 mg PO DAILY 09/15/22 09/15/22 History tablet (Vitamin C) cholecalciferol (vitamin D3) 25 0 mcg PO DAILY 09/15/22 09/15/22 History mcg (1,000 unit) capsule (Vitamin D3) cyanocobalamin (vitamin B-12) 0 mcg PO DAILY 09/15/22 09/15/22 History 1,000 mcg tablet (Vitamin B-12) dicyclomine 10 mg capsule 10 mg PO Q12H PRN ABD PAIN 09/15/22 09/15/22 History escitalopram oxalate 10 mg tablet 10 mg PO DAILY 09/15/22 09/15/22 History (Lexapro) multivitamin 1 tab PO DAILY 09/15/22 09/15/22 History norethindrone 1 mg-ethinyl 1 tab PO DAILY 09/15/22 09/15/22 History estradiol 10 mcg (24)-iron 10 mcg(2) tablet (Lo Loestrin Fe) Patient History Medical History Crohn disease Surgical History History of wisdom tooth extraction Family History Other IBS (irritable bowel syndrome) Social History Smoking Status: Never smoker Second Hand Exposure: No; Hx Alcohol Use: No Hx Substance Use: No Preferred Language: Stateless Communication Ability: Effective Blasting [employer] Required: No Beliefs That Will Affect Care: None Current Living Situation: Family Feels Safe at Home: Yes Assistive Devices: None Review of Systems Review of Systems: All systems reviewed & are unremarkable except as noted in HPI & below Physical Exam Constitutional: WD/WN, vitals as above Eyes: EOM intact bilaterally Neck: normal appearance Respiratory: normal respiratory effort, lungs clear to auscultation Cardiovascular: Rate/Rhythm: regular rate and regular rhythm Heart Sounds: no gallop and no murmur Gastrointestinal (Abdomen): Inspection/Auscultation: + abdomen distended and + hypoactive bowel sounds Percussion/Palpation: abdomen soft and + tympanic to percussion; abdomen nontender Musculoskeletal: Extremities: no cyanosis no lower extremity edema Skin: no rashes, warm and dry Neurologic: moves all extremities Psychiatric: A+Ox3, euthymic affect Results & Data ([facility]) Vital Signs (Past 12 Hours) Vital Signs Temp Pulse Pulse Resp BP BP Pulse Ox 09/15/22 09:30 95 H 14 117/68 96 09/15/22 07:30 106 H 16 111/68 99 09/15/22 05:11 96 H 18 137/64 100 09/15/22 04:28 37.2 C 112 H 18 121/88 99 09/15/22 03:43 107 H 16 125/76 100 09/15/22 02:00 99 H 99/69 L 97 09/15/22 01:45 109 H 20 99/72 L 98 09/15/22 01:45 98 09/15/22 01:33 35.0 C L 154 H 26 H 101/70 99 O2 Del Method 09/15/22 09:30 Room Air 09/15/22 07:30 Room Air 09/15/22 05:11 Room Air 09/15/22 04:28 Room Air 09/15/22 03:43 Room Air 09/15/22 02:00 Room Air 09/15/22 01:45 Room Air 09/15/22 01:45 Room Air 09/15/22 01:33 Room Air Diagnostic Findings Laboratory Results WBC 18.22 K/ul (4.8-10.8) H 09/15/22 01:47 RBC 5.34 M/uL (4.20-5.40) 09/15/22 01:47 Hgb 15.4 g/dl (12.0-16.0) 09/15/22 01:47 Hct 44.7 % (37.0-47.0) 09/15/22 01:47 MCV 83.7 fL (80.0-100.0) 09/15/22 01:47 MCH 28.8 pg (25.0-34.0) 09/15/22 01:47 MCHC 34.5 g/dL (32.0-36.0) 09/15/22 01:47 RDW Std Deviation 40.7 fL (36.4-46.3) 09/15/22 01:47 RDW Coeff of Lan 13.2 % (11.5-14.5) 09/15/22 01:47 Plt Count 517 K/uL (130-400) H 09/15/22 01:47 MPV 10.1 fL (9.4-12.4) 09/15/22 01:47 Immature Gran % (Auto) 0.4 % 09/15/22 01:47 Neut % (Auto) 86.0 % 09/15/22 01:47 Lymph % (Auto) 9.2 % 09/15/22 01:47 [place] % (Auto) 4.0 % 09/15/22 01:47 Eos % (Auto) 0.1 % 09/15/22 01:47 Baso % (Auto) 0.3 % 09/15/22 01:47 Neut # (Auto) 15.67 K/uL (1.40-6.50) H 09/15/22 01:47 Lymph # (Auto) 1.67 K/uL (1.2-3.4) 09/15/22 01:47 [place] # (Auto) 0.73 K/uL (0.11-0.59) H 09/15/22 01:47 Eos # (Auto) 0.02 K/uL (0-0.50) 09/15/22 01:47 Baso # (Auto) 0.05 K/uL (0-0.2) 09/15/22 01:47 Immature Gran # (Auto) 0.08 K/uL (0.01-0.20) 09/15/22 01:47 ESR 27 mm/hr (0-20) H 09/15/22 01:47 Sodium 140 mmol/L (136-145) 09/15/22 01:47 Potassium 3.3 mmol/L (3.5-5.1) L 09/15/22 01:47 Chloride 104 mmol/L (98-107) 09/15/22 01:47 Carbon Dioxide 18 mmol/L (21-32) L 09/15/22 01:47 Anion Gap 18 (3-11) H 09/15/22 01:47 BUN 15 mg/dl (6-23) 09/15/22 01:47 Creatinine 0.98 mg/dl (0.6-1.2) 09/15/22 01:47 Est Cr Clr Drug Dosing 76.1 ml/min 09/15/22 01:47 Est GFR ( Amer) 95.6 ml/min 09/15/22 01:47 Est GFR (Non-Af Amer) 82.5 ml/min 09/15/22 01:47 BUN/Creatinine Ratio 15.3 (10-20) 09/15/22 01:47 Glucose 191 mg/dl (70-99(Fasting)) H 09/15/22 01:47 Lactate 2.5 mmol/L (0.4-2.0) H* 09/15/22 04:52 Calcium 10.2 mg/dl (8.5-10.1) H 09/15/22 01:47 Magnesium 1.7 mg/dl (1.7-2.4) 09/15/22 01:47 Total Bilirubin 0.7 mg/dl (0.2-1.0) 09/15/22 01:47 Direct Bilirubin 0.2 mg/dl (0-0.2) 09/15/22 01:47 AST 34 U/L (13-39) 09/15/22 01:47 ALT 68 U/L (7-52) H 09/15/22 01:47 Alkaline Phosphatase 83 U/L (34-104) 09/15/22 01:47 Troponin I High Sens 3.5 pg/ml (0-14) 09/15/22 01:47 C-Reactive Protein 1.19 mg/dl (0-0.5) H 09/15/22 01:47 Total Protein 8.7 gm/dl (6.0-8.3) H 09/15/22 01:47 Albumin 4.8 gm/dl (3.4-5.0) 09/15/22 01:47 Procalcitonin < 0.05 ng/ml (0-0.5) 09/15/22 01:47 HCG, Qual Negative (Negative) 09/15/22 01:47 SARS-CoV-2, RNA, NAAT NEGATIVE (NEGATIVE) 09/15/22 06:00 Impressions Chest X-Ray 09/15/22 01:45 XR chest 1V portable CLINICAL HISTORY: Sepsis. COMPARISON STUDY: No previous studies for comparison. FINDINGS: Lung volumes are normal. Lungs are clear. There is no pneumothorax or pleural effusion. Cardiac size is normal. Mediastinal contours are normal. There is no evidence for pulmonary edema. IMPRESSION: No acute cardiopulmonary findings. ACT 112: Negative or not required by law. Electronically signed by: Lukasz Mccoy M.D. 09/15/2022 7:21 AM Abdomen/Pelvis CT 09/15/22 02:29 CT OF THE ABDOMEN AND PELVIS WITH CONTRAST CLINICAL HISTORY: Mid abdominal pain. Crohn's disease. COMPARISON STUDY: None. TECHNIQUE: Following IV administration of 86 mL of Optiray, axial images of the abdomen and pelvis were obtained from the lung bases to the proximal femurs. Images were reviewed in the axial, sagittal, and coronal planes. IV contrast was administered without complication. Automated exposure control was utilized for the study. A dose lowering technique was utilized adhering to the principles of ALARA. CT DOSE: 412.41 mGycm FINDINGS: Note is made of a small amount of pneumomediastinum within visualized portions of the lower chest. Gas extends along the fissures within the left lung base which could reflect a source for pneumomediastinum. There is mild distal esophageal wall thickening which could be due to underdistention. A small hiatal hernia is present. A few small low suspicion nodules within the lower lungs are present. No pleural effusion. No pneumoperitoneum, portal venous gas or pneumatosis is present. Liver, spleen, adrenal glands, kidneys and pancreas are unremarkable. There is no biliary or pancreatic ductal dilatation. No hydronephrosis. The appendix is normal. The small bowel is markedly distended and fluid-filled, particularly the distal small bowel. Transition point is at the terminal ileum. The colon is decompressed. Note is made of inflammation at the terminal ileum involving the ileocecal valve and possibly involving the cecum. This extends for 2.5 cm in length and represents active inflammation with stricture resulting in the small bowel obstruction. No abscess is present. No fistulas are identified. Suspected wall thickening of the distal there may also be wall thickening of the distal ileum which is difficult to assess given the degree of dilatation. Small amount of associated interloop fluid is present. There is no well-defined fluid collection. Major vasculature is patent. Prominent ileocolic lymph nodes are likely reactive. There are no acute fractures. No suspicious osseous lesions are present. IMPRESSION: 1. High-grade small bowel with transition point at the terminal ileum. This obstruction is likely due to a stricture related to active inflammation in the setting of Crohn's disease involving the terminal ileum and ileocecal valve. Small amount of associated ascites. No abscess. No fistulas. In addition, longer segment suspected wall thickening of the distal ileum, difficult to assess given the degree of small bowel dilatation. 2. Small amount of pneumomediastinum within the lower chest. This is likely bronchoalveolar in etiology. No pleural effusion or mediastinal fluid/inflammation. However given mild distal esophageal wall thickening, a chest CT with oral contrast is recommended to exclude the unlikely possibility of esophageal injury. This finding will be called/faxed to ordering provider at time of dictation. ACT 112: Negative or not required by law. Electronically signed by: Lukasz Mccoy M.D. 09/15/2022 7:13 AM PG Care Time/CCT Total # of Minutes Spent Total Time Spent with Patient: Total time spent is greater than 50% in coordination of care (as documented) at patient's floor/unit and/or counseling patient: Coding Level of Care Code INP/OBS CONSULT LVL 4, 60 MIN Diagnoses Crohn disease K50.90 SBO (small bowel obstruction) K56.609 Time Spent (min) 64
--- NOTE | 2022-09-15 12:23 | Electrocardiogram Report ---
Test Reason : Blood Pressure : / mmHG Vent. Rate : 100 BPM Atrial Rate : 100 BPM P-R Int : 146 ms QRS Dur : 092 ms QT Int : 370 ms P-R-T Axes : 038 052 023 degrees QTc Int : 477 ms Normal sinus rhythm Incomplete right bundle branch block Low voltage QRS Nonspecific T wave abnormality Anteroseptal leads Borderline ECG No previous ECGs available Confirmed by Tom Polanco ([id number]) on 09/15/2022 12:22:32 PM Referred By: REFERRED SELF Confirmed By:Tom Polanco
[2022-09-15 18:15] LABS: Ferritin 49.6 ng/ml (8-388)
[2022-09-16] MEDS: methylPREDNISolone 40 MG in SYRINGE 0 ML IV SCH (08:12)
[2022-09-16 08:56] LABS: BUN Creatinine Ratio 12.5 (10-20); Calcium 8.8 mg/dl (8.5-10.1); Creatinine Clr Calc Pharmacy 106.2 ml/min; Est GFR (African American) 138.7 ml/min; Est GFR (Non-African American) 119.7 ml/min; Potassium 3.5 mmol/L (3.5-5.1)
--- NOTE | 2022-09-16 09:39 | Gastroenterology Progress Note ---
Date of Service September 16, 2022 Assessment & Plan (1) Crohn disease: (2) SBO (small bowel obstruction): Plan Patient is a very pleasant 22 y.o. female with a history of Crohn's ileitis with probable stenosis admitted with abdominal pain, nausea with vomiting and abnormal labs/imaging consistent with SBO. 1. NPO for now. If KUB this am is improved, can advanced to clear liquids. 2. Continue Solu-Medrol 40 mg IV daily. 3. Supportive measure per primary team. 4. Outpatient Stelara as prescribed. Per Mom, prefers to have outpatient management per primary GI team in [place]. Admission and Anticipated Discharge Date Admission Date: September 15, 2022 Subjective Patient was tearful upon entering room. She is reporting significant hunger. No symptoms of abdominal pain, n/v. Passing some loose/liquid stools and flatus. Abdominal distention is improved. Serum lactate has normalized. She is on IV corticosteroids. Review of Systems Constitutional: no fever and no chills Gastrointestinal: as per Subjective / HPI Physical Exam Constitutional: WD/WN, vitals as above Respiratory: normal respiratory effort, lungs clear to auscultation Cardiovascular: Rate/Rhythm: regular rate and regular rhythm Gastrointestinal (Abdomen): Inspection/Auscultation: + abdomen distended and normal bowel sounds Percussion/Palpation: abdomen soft; abdomen nontender Psychiatric: Affect: + anxious affect and + tearful affect Results & Data Results & Data ([facility]) Vital Signs (Past 12 Hours) Vital Signs Temp Pulse Resp BP Pulse Ox O2 Del Method 09/16/22 07:31 36.6 C 71 16 106/68 97 Room Air Diagnostic Findings Laboratory Results WBC 18.22 K/ul (4.8-10.8) H 09/15/22 01:47 RBC 5.34 M/uL (4.20-5.40) 09/15/22 01:47 Hgb 15.4 g/dl (12.0-16.0) 09/15/22 01:47 Hct 44.7 % (37.0-47.0) 09/15/22 01:47 MCV 83.7 fL (80.0-100.0) 09/15/22 01:47 MCH 28.8 pg (25.0-34.0) 09/15/22 01:47 MCHC 34.5 g/dL (32.0-36.0) 09/15/22 01:47 RDW Std Deviation 40.7 fL (36.4-46.3) 09/15/22 01:47 RDW Coeff of Lan 13.2 % (11.5-14.5) 09/15/22 01:47 Plt Count 517 K/uL (130-400) H 09/15/22 01:47 MPV 10.1 fL (9.4-12.4) 09/15/22 01:47 Immature Gran % (Auto) 0.4 % 09/15/22 01:47 Neut % (Auto) 86.0 % 09/15/22 01:47 Lymph % (Auto) 9.2 % 09/15/22 01:47 [place] % (Auto) 4.0 % 09/15/22 01:47 Eos % (Auto) 0.1 % 09/15/22 01:47 Baso % (Auto) 0.3 % 09/15/22 01:47 Neut # (Auto) 15.67 K/uL (1.40-6.50) H 09/15/22 01:47 Lymph # (Auto) 1.67 K/uL (1.2-3.4) 09/15/22 01:47 [place] # (Auto) 0.73 K/uL (0.11-0.59) H 09/15/22 01:47 Eos # (Auto) 0.02 K/uL (0-0.50) 09/15/22 01:47 Baso # (Auto) 0.05 K/uL (0-0.2) 09/15/22 01:47 Immature Gran # (Auto) 0.08 K/uL (0.01-0.20) 09/15/22 01:47 ESR 27 mm/hr (0-20) H 09/15/22 01:47 Sodium 139 mmol/L (136-145) 09/16/22 08:22 Potassium 3.5 mmol/L (3.5-5.1) 09/16/22 08:22 Chloride 108 mmol/L (98-107) H 09/16/22 08:22 Carbon Dioxide 23 mmol/L (21-32) 09/16/22 08:22 Anion Gap 8 (3-11) 09/16/22 08:22 BUN 9 mg/dl (6-23) 09/16/22 08:22 Creatinine 0.72 mg/dl (0.6-1.2) 09/16/22 08:22 Est Cr Clr Drug Dosing 106.2 ml/min 09/16/22 08:22 Est GFR ( Amer) 138.7 ml/min 09/16/22 08:22 Est GFR (Non-Af Amer) 119.7 ml/min 09/16/22 08:22 BUN/Creatinine Ratio 12.5 (10-20) 09/16/22 08:22 Glucose 88 mg/dl (70-99(Fasting)) 09/16/22 08:22 Lactate 0.6 mmol/L (0.4-2.0) 09/16/22 08:22 Calcium 8.8 mg/dl (8.5-10.1) 09/16/22 08:22 Magnesium 1.7 mg/dl (1.7-2.4) 09/15/22 01:47 Iron 88 mcg/dl (35-150) 09/15/22 17:20 Ferritin 49.6 ng/ml (8-388) 09/15/22 17:20 Total Bilirubin 0.7 mg/dl (0.2-1.0) 09/15/22 01:47 Direct Bilirubin 0.2 mg/dl (0-0.2) 09/15/22 01:47 AST 34 U/L (13-39) 09/15/22 01:47 ALT 68 U/L (7-52) H 09/15/22 01:47 Alkaline Phosphatase 83 U/L (34-104) 09/15/22 01:47 Troponin I High Sens 3.5 pg/ml (0-14) 09/15/22 01:47 C-Reactive Protein 1.19 mg/dl (0-0.5) H 09/15/22 01:47 Total Protein 8.7 gm/dl (6.0-8.3) H 09/15/22 01:47 Albumin 4.8 gm/dl (3.4-5.0) 09/15/22 01:47 Procalcitonin < 0.05 ng/ml (0-0.5) 09/15/22 01:47 HCG, Qual Negative (Negative) 09/15/22 01:47 SARS-CoV-2, RNA, NAAT NEGATIVE (NEGATIVE) 09/15/22 06:00 Impressions Chest X-Ray 09/15/22 01:45 XR chest 1V portable CLINICAL HISTORY: Sepsis. COMPARISON STUDY: No previous studies for comparison. FINDINGS: Lung volumes are normal. Lungs are clear. There is no pneumothorax or pleural effusion. Cardiac size is normal. Mediastinal contours are normal. There is no evidence for pulmonary edema. IMPRESSION: No acute cardiopulmonary findings. ACT 112: Negative or not required by law. Electronically signed by: Lukasz Mccoy M.D. 09/15/2022 7:21 AM Abdomen/Pelvis CT 09/15/22 02:29 CT OF THE ABDOMEN AND PELVIS WITH CONTRAST CLINICAL HISTORY: Mid abdominal pain. Crohn's disease. COMPARISON STUDY: None. TECHNIQUE: Following IV administration of 86 mL of Optiray, axial images of the abdomen and pelvis were obtained from the lung bases to the proximal femurs. Images were reviewed in the axial, sagittal, and coronal planes. IV contrast was administered without complication. Automated exposure control was utilized for the study. A dose lowering technique was utilized adhering to the principles of ALARA. CT DOSE: 412.41 mGycm FINDINGS: Note is made of a small amount of pneumomediastinum within visualized portions of the lower chest. Gas extends along the fissures within the left lung base which could reflect a source for pneumomediastinum. There is mild distal esophageal wall thickening which could be due to underdistention. A small hiatal hernia is present. A few small low suspicion nodules within the lower lungs are present. No pleural effusion. No pneumoperitoneum, portal venous gas or pneumatosis is present. Liver, spleen, adrenal glands, kidneys and pancreas are unremarkable. There is no biliary or pancreatic ductal dilatation. No hydronephrosis. The appendix is normal. The small bowel is markedly distended and fluid-filled, particularly the distal small bowel. Transition point is at the terminal ileum. The colon is decompressed. Note is made of inflammation at the terminal ileum involving the ileocecal valve and possibly involving the cecum. This extends for 2.5 cm in length and represents active inflammation with stricture resulting in the small bowel obstruction. No abscess is present. No fistulas are identified. Suspected wall thickening of the distal there may also be wall thickening of the distal ileum which is difficult to assess given the degree of dilatation. Small amount of associated interloop fluid is present. There is no well-defined fluid collection. Major vasculature is patent. Prominent ileocolic lymph nodes are likely reactive. There are no acute fractures. No suspicious osseous lesions are present. IMPRESSION: 1. High-grade small bowel with transition point at the terminal ileum. This obstruction is likely due to a stricture related to active inflammation in the setting of Crohn's disease involving the terminal ileum and ileocecal valve. Small amount of associated ascites. No abscess. No fistulas. In addition, longer segment suspected wall thickening of the distal ileum, difficult to assess given the degree of small bowel dilatation. 2. Small amount of pneumomediastinum within the lower chest. This is likely bronchoalveolar in etiology. No pleural effusion or mediastinal fluid/inflammation. However given mild distal esophageal wall thickening, a chest CT with oral contrast is recommended to exclude the unlikely possibility of esophageal injury. This finding will be called/faxed to ordering provider at time of dictation. ACT 112: Negative or not required by law. Electronically signed by: Lukasz Mccoy M.D. 09/15/2022 7:13 AM PG Care Time/CCT Total # of Minutes Spent Total Time Spent with Patient: Total time spent is greater than 50% in coordination of care (as documented) at patient's floor/unit and/or counseling patient: Coding Level of Care Code 70004 SUB INP/OBS CARE 3/50MIN Diagnoses Crohn disease K50.90 SBO (small bowel obstruction) K56.609
--- NOTE | 2022-09-16 09:41 | XRay Report ---
KUB HISTORY: Small bowel obstruction. Follow-up. COMPARISON: None. FINDINGS: Multiple dilated gas-filled loops of bowel are again seen within the abdomen. This has slig htly improved in the interval. Punctate calcifications again noted within the pelvis. No renal calcu li. No ureteral calculi. No pneumoperitoneum or pneumatosis. IMPRESSION: Slight improvement in the dilated gas-filled loops of bowel. This may represent a resolving small bow el obstruction. ACT 112: Negative or not required by law. Electronically signed by: Rey Le M.D. 09/16/2022 9:40 AM
[2022-09-16 09:47] LABS: Hematocrit (blood only) 37.1 % (37.0-47.0); Hemoglobin 12.5 g/dl (12.0-16.0); Mean Corpuscular Hemoglobin 29.1 pg (25.0-34.0); Mean Corpuscular Hgb Conc 33.7 g/dL (32.0-36.0); Mean Corpuscular Volume 86.5 fL (80.0-100.0); Mean Platelet Volume 10.2 fL (9.4-12.4); Platelet Count 342 K/uL (130-400); RDW Standard Deviation 43.6 fL (36.4-46.3); Red Blood Count 4.29 M/uL (4.20-5.40); White Blood Count 8.18 K/ul (4.8-10.8)
--- NOTE | 2022-09-16 10:01 | Surgery Progress Note ---
Date of Service September 16, 2022 Assessment & Plan (1) SBO (small bowel obstruction): Plan: Patient here with SBO 2/2 Crohns disease inflammation/stricture at the terminal ileum WBC 8(18) Vitals are stable KUB showed evidence of resolving SBO. She is passing flatus and loose stools Will start clear liquids...advance diet slowly as tolerates Appreciate GI input regarding steroid dosing and crohn's medications No plans for surgical intervention [facility] covering the weekend if any questions/concerns (2) Crohn disease: Admission and Anticipated Discharge Date Admission Date: September 15, 2022 Supervising Physician Co-Signing Physician Notes Patient seen and examined, labs and imaging reviewed, agree with above. 22-year-old female with Crohn's disease admitted for Crohn's flare with partial small bowel obstruction at . She has had multiple loose bowel movements and is passing flatus. She is very anxious and tearful along with her mother. They are anxious to go home. On exam she is afebrile stable vitals, her abdomen is soft, less distended, minimally tender. KUB with improved distention. Advance diet to low fiber diet as tolerated, general surgery will follow peripherally, call with questions or concerns. Dr. Bell covering over the weekend. Subjective Patient is tearful. Denies any abdominal pain/n/v. Reports passing gas and loose stools. Is hungry. Both she and mother are anxious about leaving the hospital. Physical Exam Physical Exam: awake/alert. tearful Gastrointestinal (Abdomen): Inspection/Auscultation: + abdomen distended (mild) Percussion/Palpation: abdomen soft; abdomen nontender Results & Data ([facility]) Vital Signs (Past 12 Hours) Vital Signs Temp Pulse Resp BP Pulse Ox O2 Del Method 09/16/22 07:31 36.6 C 71 16 106/68 97 Room Air PG Care Time/CCT Total # of Minutes Spent Total Time Spent with Patient: Total time spent is greater than 50% in coordination of care (as documented) at patient's floor/unit and/or counseling patient: Coding Level of Care Code 88619 SUB INP/OBS CARE 125MIN Diagnoses SBO (small bowel obstruction) K56.609 Crohn disease K50.90
--- NOTE | 2022-09-16 14:46 | Discharge Summary ---
Date of Service September 16, 2022 Admission HPI Per Admitting Provider Kasie Tadeo is a 22yo female with history of Crohns disease presenting with SBO. She is complaining of one day of severe abdominal pain - diffuse cramping as well as nausea and multiple episodes of bilious vomiting. She is passing some flatus - last this am. Had a small BM this AM as well. Patient was diagnosed with Crohns disease appx 1 year ago. She follows with [facility]. She was previously on Budesonide and now is on Stelara injections. She is to get the injections q 8 weeks - sometimes will get it at 7 weeks due to recurrence of symptoms. Her disease is overall well controlled. She has not had a flare since her diagnosis. Last Stelara injection was 5 days ago. In the ER she is afebrile, HD stable. Nausea and pain is improved ER Course: Tylenol, Dicyclomine Admission Exam Per Admitting Provider General: patient resting comfortably, NAD, non-toxic in appearance, AA&O x 4 Skin: warm, dry, intact, no rashes or lesions HEENT: NC/AT, PERRL, EOMI, anicteric sclera, conjunctiva without injection, external ear normal to inspection and nontender, nares patent, moist mucus mem branes, dentition intact, no oropharyngeal lesions, neck supple, trachea midline, no LAD, no thyromegaly, no JVD Heart: +S1/S2, regular, no m/r/g Lungs: equal air entry bilaterally, no rales/rhonchi/wheezes Abd: diminished bowel sounds, soft, ND, diffusely tender, no masses/organomegaly/ascites Ext: warm, 2+ pulses in UE/LE bilaterally, no clubbing/cyanosis or edema Neuro: nonfocal, patient AA&O x 4, speech intact, no facial droop, moving all extremities on command with equal strength 5/5 Principal Diagnosis SBO Crohns Disease Discharge Exam Constitutional WD/WN, vitals as above ENMT external ear and nose normal, oropharynx normal Neck trachea midline, no thyromegaly Respiratory normal respiratory effort, lungs clear to auscultation Cardiovascular RRR, no murmur, no edema Gastrointestinal (Abdomen) Inspection/Auscultation: abdomen normal to inspection and normal bowel sounds; abdomen not distended Percussion/Palpation: + abdomen tender and abdomen soft; no hepatosplenomegaly and no abdominal mass Skin no rashes, warm and dry Psychiatric A+Ox3, euthymic affect Discharge Data Allergies Allergy/AdvReac Type Severity Reaction Status Date / Time ferrous sulfate Allergy Severe Anaphylaxis Verified 09/15/22 02:15 iron Allergy Severe Anaphylaxis Verified 09/15/22 02:15 Consultations 09/15/22 07:39 Consult Gastroenterology Routine Consult General Surgery Routine Ordered Studies 09/15/22 02:29 CT Abd and Pelvis [CT abd pelvis IV con only] Stat IMPRESSION: 1. High-grade small bowel with transition point at the terminal ileum. This obstruction is likely due to a stricture related to active inflammation in the setting of Crohn's disease involving the terminal ileum and ileocecal valve. Small amount of associated ascites. No abscess. No fistulas. In addition, longer segment suspected wall thickening of the distal ileum, difficult to assess given the degree of small bowel dilatation. 2. Small amount of pneumomediastinum within the lower chest. This is likely bronchoalveolar in etiology. No pleural effusion or mediastinal fluid/in flammation. However given mild distal esophageal wall thickening, a chest CT with oral contrast is recommended to exclude the unlikely possibility of esophageal injury. This finding will be called/faxed to ordering provider at time of dictation. KUB IMPRESSION: Slight improvement in the dilated gas-filled loops of bowel. This may represent a resolving small bowel obstruction. Hospital Course (1) SBO (small bowel obstruction): 22yo female with history of Crohns disease - overall well managed on Stelara - presenting with high grade SBO secondary to Crohns - possible stricture as noted on imaging Patient was initially NPO and then increased to clears KUB this AM showed evidence of resolving SBO. She is passing flatus and loose stools -General surgery consultation appreciated -GI consultation appreciated Recommend initially NPO, IVFs, analgesics, antiemetics If has further nausea recommends NGT Also recommend Solu-Medrol 40mg IV daily Patient was improving clinically and was requesting to be discharged home (she [place] 2[place] hours away ) Her mother is at bedside and is a RN and states she wants to take her home to recover. Discussed with patient and her mother that our service along with GI and surgery are recommending to stay, continue clear liqud diet, continue IV steroids and wait another 24 to 48 hours before discharging. They both are aware of the recommendations and state they are aware if any nausea, vomiting or any abdominal pain they need to get to the nearest Emergency Department. (2) Crohn disease: Crohns disease with SBO as above Patient had 3 doses of IV Solu Medrol 40mg Will discharge on Prednisone taper of 40mg daily and decrease by 5mg every week until on 5mg for 1 week and then stop She will follow p with her regular GI at home ([facility] [place]) and also with Dr Phelps. Possibly patient may benefit from decreasing the frequency of her Stelara. She does have a follow up Colonoscopy planned for November. Discussed a low fiber easy to digest diet with patient and her mother Discussed she should continue clear liquid diet for the next 2 days and then increase to full liquid diet and then low residue (3) Anxiety: Chronic -Continue Lexapro Total Time Total Time Spent Total Time Spent (In Minutes): 50 Discharge Plan Discharge Items Patient Disposition: Home - Self-Care Reason For Visit: SBO, CROHNS DISEASE Discharge Diagnosis: SBO, Crohns Disease Condition on Discharge: Good Activity: As commented below Lifting: None Exercise/Sports: Gradually increase as tolerated Weightbearing: Full weightbearing Non-emergency contact: Primary Care Provider and Regional Guide Call non-emergency contact if: you have any medication questions, your symptoms worsen, your pain is not controlled, your pain is worsening and you have a fever Follow-up/Referrals: Sierra Tracy MD [Primary Care Provider] - Diet: Clear liquid Diet Comment: clear liquid diet for the next 48-72 hours and then increase to full liquid Addtl Attending Provider Instructions: You were admitted with abdominal pain, nausea and vomiting. You had a CT scan and found to have a small bowel obstruction. You have known Chron Disease and ileitis and previous stricture and it is presumed you have an obstruction at the stricture site. You were treated conservatively and the nausea and vomiting resolved without needing a nasogastric tube to be placed. You were made nothing to eat and eventually started on clear liquid diet. Your pain and N/V both resolved and the xray of your abdomen today showed evidence of resolving SBO. You have been passing flatus (gas) and loose stools. You were seen by GI and also the general surgery group here. You were treated with IV steroids. It was recommended to stay another 24 to 48 hours and advance your diet slowly and continue the IV steroids. Since you were able to tolerate to meals of clear liquids with no Nausea or vomiting and no further abdominal pain, a decision was made to discharge you under the care of your mother and take you to your home town. We will have you remain on clear liquid diet for the next 24 to 48 hours and then advance to full liquid diet for the following 2-3 days. After that you may slowly increase to a low residue, low fiber diet. Education sheets have been provided for you to follow. You may also google Up To Date and get any other patient education forms to read for guidance. If you should have reoccurrence of abdominal pain, nausea and / or vomiting you will need to go to the nearest emergency department. You also should have follow ups with your regular GI group and also GI group locally here. You will be discharged on oral prednisone 40 mg daily for 1 week and then decreased every week by 5mg each week. Until you are on 5mg for 1 week and then stop . This Rx was sent to [facility] pharmacy in [facility]. Pending Studies at Discharge: No Stand-Alone Forms: My [facility], Work/School Release Medications and DC Order Prescriptions: New prednisone 10 mg tablet 10 mg PO DIRECTED Qty: 128 0RF Rx Instructions: see taper instructions 40mg daily x 7 days, decrease by 5mg every week until on 5mg daily for the last week. Total of 8 weeks Start 09/17/22 Continued multivitamin Tablet 1 tab PO DAILY cyanocobalamin (vitamin B-12) [Vitamin B-12] 1,000 mcg Tablet 0 mcg PO DAILY Rx Instructions: PT UNSURE OF STRENGTH ascorbic acid (vitamin C) [Vitamin C] 500 mg Tablet 0 mg PO DAILY Rx Instructions: PT UNSURE OF STRENGTH dicyclomine 10 mg Capsule 10 mg PO Q12H PRN (Reason: ABD PAIN) cholecalciferol (vitamin D3) [Vitamin D3] 25 mcg (1,000 unit) Capsule 0 mcg PO DAILY Rx Instructions: PT UNSURE OF STRENGTH escitalopram oxalate [Lexapro] 10 mg Tablet 10 mg PO DAILY Lo Loestrin Fe 1 mg-10 mcg (24)/10 mcg (2) Tablet 1 tab PO DAILY Discharge Orders: Discharge Order (Routine); Ordered 09/16/22 Ordered By: Myesha Wharton Admission Data Admit Date/Time: 09/15/22 06:20 Attending Provider: Giuseppe Tovar Admit Provider: Jeri Arevalo Primary Care Provider: Sierra Tracy Other Providers: Farshad Phelps ; Genaro Holt. Coding Level of Care Code INP/OBS EV SAME DAY LV 2,70MIN Diagnoses SBO (small bowel obstruction) K56.609 Crohn disease K50.90 Anxiety F41.9 Time Spent (min) 50
[2022-09-20 10:34] LABS: Quantiferon Mitogen-NIL >10.00 IU/mL; Quantiferon NIL 0.03 IU/mL; Quantiferon TB Gold Plus NEGATIVE (NEGATIVE); Quantiferon TB1-NIL <0.00 IU/mL; Quantiferon TB2-NIL <0.00 IU/mL
== END 2022-09-16 16:54 | disposition home or self-care (01) | DRG 386 ==
LOC: ED 01:30 → SUATTDRO 06:20 → EDINP 06:20 → 3W 06:59